=== PATIENT | female | born 1965 | race Hispanic/Latino ===

== ENCOUNTER 2018-08-25 19:31 | Emergency (ER) | payer OTHER, MEDICARE ==
[~2018-08-25 19:31] MED LIST: ALBU0.63 IH; ARIP15TA2 PO; ASPI-555 PO; ATOR40TA69 PO; CALC1TAB3 PO; CAND16TA12 PO; CIPR-278 PO; GEMF600T4 PO; GLIM1TAB2 PO; INSLAN SQ; ISOS30TA6 PO; LEVO25TA9 PO; LORA1TAB3 PO; METF-444 PO; METO-409 PO; OSEL75 GT; PRED20TA3 PO; RANI150T7 PO; SITA100T12 PO; TYL3B PO; VENL75CA97 PO
[2018-08-25 20:12] LABS: BASOPHILS % (AUTO) 0.6 % (0.0-5.0); EOSINOPHILS % (AUTO) 1.7 % (0.0-8.0); LYMPHOCYTES % (AUTO) 43.6 % (21.0-51.0); MEAN CORPUSCULAR HEMOGLOBIN 32.4 pg (27.0-33.0); MEAN CORPUSCULAR HGB CONC 34.2 g/dL (32.0-36.0); MEAN CORPUSCULAR VOLUME 94.7 fL (79-99); NEUTROPHILS % (AUTO) 48.1 % (40.0-77.0); PLATELET COUNT (AUTO) 229 K/uL (130-400); RED BLOOD CELL COUNT(AUTO) 4.22 MIL/uL (4.00-5.50); RED CELL DISTRIBUTION WIDTH 13.5 % (11.0-15.5); WHITE BLOOD COUNT (AUTO) 8.6 K/uL (4.8-10.8)
[2018-08-25 20:14] LABS: APPEARANCE,URINE Clear (CLEAR); BILIRUBIN,URINE Negative (NEGATIVE); COLOR,URINE Yellow (YELLOW); GLUCOSE, URINE (UA) Negative (NEGATIVE); KETONES,URINE Negative (NEGATIVE); LEUKOCYTE ESTERASE ,URINE Small (NEGATIVE); NITRATE,URINE Negative (NEGATIVE); OCCULT BLOOD,URINE Negative (NEGATIVE); PROTEIN,URINE Negative (NEGATIVE); UROBILINOGEN,URINE 0.2 mg/dL (0.2-1.0)
[2018-08-25 20:22] LABS: POTASSIUM 4.2 mmol/L (3.5-5.1)
[2018-08-25 20:23] LABS: AMPHET/METH SCREEN,URINE NEGATIVE (NEGATIVE); BARBITURATE SCREEN, URINE NEGATIVE (NEGATIVE); BENZODIAZEPINES SCREEN,URINE NEGATIVE (NEGATIVE); CANNABINOID SCREEN,URINE NEGATIVE (NEGATIVE); COCAINE SCREEN,URINE NEGATIVE (NEGATIVE); OPIATE SCREEN,URINE NEGATIVE (NEGATIVE); PHENCYCLIDINE SCREEN,URINE NEGATIVE (NEGATIVE)
[2018-08-25 20:27] LABS: ALBUMIN 3.7 g/dL (3.5-5.0); BILIRUBIN,TOTAL 0.1 mg/dL (0.2-1.0); TOTAL PROTEIN, SERUM 7.3 g/dL (6.0-8.3)
[2018-08-25 20:48] LABS: BACTERIA,URINE Few /HPF (None Seen); MUCUS,URINE None Seen LPF (None Seen)
[2018-08-25 20:49] LABS: RBC,URINE 0-1 /HPF (0-1)
[2018-08-25] MEDS ORDERED: ONDANSETRON HCL 4 MG/2 ML VIAL ONE (21:45)
[2018-08-25] MEDS ORDERED: KETOROLAC TROMETHAMINE 30MG/ML ONE (21:45)
== END 2018-08-25 22:17 | disposition home or self-care (01) ==
LOC: EDH 19:31
DX: R51 Headache (principal); E11.65 Type 2 diabetes mellitus with hyperglycemia; J45.909 Unspecified asthma, uncomplicated; E78.5 Hyperlipidemia, unspecified; F32.9 Major depressive disorder, single episode, unspecified; F41.9 Anxiety disorder, unspecified; Z88.0 Allergy status to penicillin
CPT/HCPCS: 36415; 70450; 71045; 80053; 80305; 81001; 82150; 82550; 83690; 84484; 85025; 87804 ×2; 93005; 96374; 96375; 99285; J1885; J2405

== ENCOUNTER 2018-11-30 17:19 | Emergency (ER) | payer OTHER, MEDICARE ==
[~2018-11-30 17:19] MED LIST changes: -GEMF600T4 PO; +GEMF600T5 PO
[2018-11-30] MEDS ORDERED: ASPIRIN 325 MG TABLET ONE (17:42)
[2018-11-30] MEDS ORDERED: LORAZEPAM 2 MG/ML 1 ML VIAL ONE (17:43)
[2018-11-30 18:14] LABS: BASOPHILS % (AUTO) 0.8 % (0.0-5.0); EOSINOPHILS % (AUTO) 1.6 % (0.0-8.0); HEMATOCRIT 39.8 % (36-48); LYMPHOCYTES % (AUTO) 41.4 % (21.0-51.0); MEAN CORPUSCULAR HEMOGLOBIN 32.3 pg (27.0-33.0); MEAN CORPUSCULAR HGB CONC 34.2 g/dL (32.0-36.0); MEAN CORPUSCULAR VOLUME 94.3 fL (79-99); MONOCYTES % (AUTO) 8.1 % (3.0-13.0); NEUTROPHILS % (AUTO) 48.1 % (40.0-77.0); PLATELET COUNT (AUTO) 240 K/uL (130-400); RED BLOOD CELL COUNT(AUTO) 4.22 MIL/uL (4.00-5.50); RED CELL DISTRIBUTION WIDTH 13.7 % (11.0-15.5); WHITE BLOOD COUNT (AUTO) 6.8 K/uL (4.8-10.8)
[2018-11-30 18:36] LABS: BILIRUBIN,DIRECT 0.1 mg/dL (0.0-0.3); BILIRUBIN,TOTAL 0.2 mg/dL (0.2-1.0); CREATININE 0.9 mg/dL (0.5-1.5); POTASSIUM 4.3 mmol/L (3.5-5.1); TOTAL PROTEIN, SERUM 7.8 g/dL (6.0-8.3)
[2018-11-30 19:09] LABS: B-TYPE NATRIURETIC PEPTIDE 24 pg/mL (0-100)
[2018-11-30] MEDS ORDERED: SODIUM CHLORIDE 0.9% 1000ML 1,000 ML IV ONE (19:13)
[2018-11-30] MEDS ORDERED: INSULIN HUMULIN R 100 UNIT/ML 3ML ONE (20:05)
== END 2018-11-30 20:18 | disposition home or self-care (01) ==
LOC: EDH 17:19
DX: R07.89 Other chest pain (principal); J45.909 Unspecified asthma, uncomplicated; F32.9 Major depressive disorder, single episode, unspecified; E11.9 Type 2 diabetes mellitus without complications; E78.5 Hyperlipidemia, unspecified; F41.9 Anxiety disorder, unspecified; Z88.0 Allergy status to penicillin; Z79.4 Long term (current) use of insulin
CPT/HCPCS: 36415; 71045; 80048; 80076; 82550; 83880; 84484 ×2; 85025; 93005 ×2; 96374; 96375; 99284; J1815; J2060; J7030

== ENCOUNTER → 2018-12-25 | Outpatient (CLI) | payer OTHER, MEDICARE | END | disposition home or self-care (01) | LOC: SHCH 08:19 | PROVIDERS: ATTEND Internal Medicine Cardiovascular Disease | DX: R07.9 Chest pain, unspecified (principal); R00.2 Palpitations; R06.00 Dyspnea, unspecified | CPT/HCPCS: 71046; 93306 ==

== ENCOUNTER 2019-01-19 02:07 | Emergency (ER) | payer OTHER, MEDICARE ==
[2019-01-19 02:48] LABS: BASOPHILS % (AUTO) 0.6 % (0.0-5.0); EOSINOPHILS % (AUTO) 1.1 % (0.0-8.0); HEMATOCRIT 38.6 % (36-48); LYMPHOCYTES % (AUTO) 32.8 % (21.0-51.0); MEAN CORPUSCULAR HEMOGLOBIN 31.4 pg (27.0-33.0); MEAN CORPUSCULAR HGB CONC 34.8 g/dL (32.0-36.0); MEAN CORPUSCULAR VOLUME 90.3 fL (79-99); MONOCYTES % (AUTO) 6.4 % (3.0-13.0); NEUTROPHILS % (AUTO) 59.1 % (40.0-77.0); NUCLEATED RED BLOOD CELLS 0.2 % (0.0-0.19); PLATELET COUNT (AUTO) 244 K/uL (130-400); RED BLOOD CELL COUNT(AUTO) 4.27 MIL/uL (4.00-5.50); RED CELL DISTRIBUTION WIDTH 13.8 % (11.0-15.5); WHITE BLOOD COUNT (AUTO) 7.4 K/uL (4.8-10.8)
[2019-01-19] MEDS ORDERED: FAMOTIDINE/PF 20 MG/2 ML VIAL IV ONE (02:50)
[2019-01-19] MEDS ORDERED: ONDANSETRON HCL 4 MG/2 ML VIAL ONE (02:50)
[2019-01-19 02:55] LABS: APPEARANCE,URINE Clear (CLEAR); BILIRUBIN,URINE Negative (NEGATIVE); COLOR,URINE Yellow (YELLOW); GLUCOSE, URINE (UA) >=1000 mg/dL (NEGATIVE); KETONES,URINE 40 mg/dL (NEGATIVE); LEUKOCYTE ESTERASE ,URINE Negative (NEGATIVE); NITRATE,URINE Negative (NEGATIVE); OCCULT BLOOD,URINE Negative (NEGATIVE); PROTEIN,URINE 300 mg/dL (NEGATIVE)
[2019-01-19] MEDS ORDERED: SODIUM CHLORIDE 0.9% 1000ML 1,000 ML IV ONE (02:57)
[2019-01-19 02:58] LABS: INR 0.95 (0.85-1.15); PARTIAL THROMBOPLASTIN TIME 25.1 SEC (26.3-35.5)
[2019-01-19 02:59] LABS: CREATININE 0.9 mg/dL (0.5-1.5); POTASSIUM 3.7 mmol/L (3.5-5.1)
[2019-01-19 03:03] LABS: ALBUMIN 3.8 g/dL (3.5-5.0); BILIRUBIN,TOTAL 0.2 mg/dL (0.2-1.0); TOTAL PROTEIN, SERUM 7.8 g/dL (6.0-8.3)
[2019-01-19 03:11] LABS: BACTERIA,URINE None Seen /HPF (None Seen); MUCUS,URINE Moderate LPF (None Seen); RBC,URINE 0-1 /HPF (0-1); SQUAMOUS EPITHELIAL CELL,UR Moderate /HPF (0-2); WBC,URINE 0-1 /HPF (0-1)
[2019-01-19] MEDS ORDERED: LIDOCAINE HCL 2% VISCOUS 15 ML UDCUP ONE (05:05)
[2019-01-19] MEDS ORDERED: MAG HYDROX/AL HYDROX/SIMETH ES 30 ML SUSP UDCUP ONE (05:05)
[2019-01-19] MEDS ORDERED: PANTOPRAZOLE 40 MG/VIAL IVP ONE (05:15)
== END 2019-01-19 05:25 | disposition home or self-care (01) ==
LOC: EDH 02:07
DX: E86.9 Volume depletion, unspecified (principal); E11.65 Type 2 diabetes mellitus with hyperglycemia; R11.2 Nausea with vomiting, unspecified; E78.5 Hyperlipidemia, unspecified; J45.909 Unspecified asthma, uncomplicated; F41.9 Anxiety disorder, unspecified; Z88.0 Allergy status to penicillin
CPT/HCPCS: 36415; 80053; 81001; 82550; 83605 ×2; 83690; 84484; 85025; 85610; 85730; 93005; 96361; 96374; 96375; 99284; C9113; J2405; J3490; J7030

== ENCOUNTER 2021-07-06 22:47 | Emergency (ER) | payer OTHER, MEDICARE ==
[~2021-07-06] VITALS: Ht 152.4 cm; Wt 69.4 kg
[~2021-07-06 22:47] MED LIST changes: -ASPI-555 PO; +ASPI-556 PO; -GEMF600T5 PO; +GEMF600T89 PO; +GLIM1TAB18 PO; -GLIM1TAB2 PO; -ISOS30TA6 PO; +ISOS30TA92 PO
[2021-07-06 23:17] VITALS: BP 149/76
[2021-07-07 00:30] LABS: APPEARANCE,URINE Clear (CLEAR); BILIRUBIN,URINE Negative (NEGATIVE); COLOR,URINE Yellow (YELLOW); GLUCOSE, URINE (UA) >=1000 mg/dL (NEGATIVE); KETONES,URINE Trace mg/dL (NEGATIVE); LEUKOCYTE ESTERASE ,URINE Negative (NEGATIVE); NITRATE,URINE Negative (NEGATIVE); OCCULT BLOOD,URINE Negative (NEGATIVE); PROTEIN,URINE Negative (NEGATIVE); UROBILINOGEN,URINE 0.2 mg/dL (0.2-1.0)
[2021-07-07 00:46] LABS: BACTERIA,URINE None Seen /HPF (None Seen); RBC,URINE 0-1 /HPF (0-1); SQUAMOUS EPITHELIAL CELL,UR Few /HPF (0-2); WBC,URINE 0-1 /HPF (0-1)
[2021-07-07 00:46] LABS: BASOPHILS % (AUTO) 0.8 % (0.0-5.0); EOSINOPHILS % (AUTO) 2.3 % (0.0-8.0); HEMATOCRIT 39.5 % (36-48); MEAN CORPUSCULAR HEMOGLOBIN 31.2 pg (27.0-33.0); MEAN CORPUSCULAR HGB CONC 36.5 g/dL (32.0-36.0); MEAN CORPUSCULAR VOLUME 85.5 fL (79-99); MONOCYTES % (AUTO) 7.5 % (3.0-13.0); NEUTROPHILS % (AUTO) 42.2 % (40.0-77.0); PLATELET COUNT (AUTO) 252 K/uL (130-400); RED BLOOD CELL COUNT(AUTO) 4.62 MIL/uL (4.00-5.50); RED CELL DISTRIBUTION WIDTH 15.1 % (11.0-15.5); WHITE BLOOD COUNT (AUTO) 9.9 K/uL (4.8-10.8)
[2021-07-07 00:51] LABS: CREATININE 1.2 mg/dL (0.5-1.5); POTASSIUM 4.4 mmol/L (3.5-5.1)
[2021-07-07 00:55] VITALS: BP 150/71
[2021-07-07 00:56] LABS: ALBUMIN 3.7 g/dL (3.5-5.0); BILIRUBIN,TOTAL 0.3 mg/dL (0.2-1.0); TOTAL PROTEIN, SERUM 7.9 g/dL (6.0-8.3)
[2021-07-07] MEDS ORDERED: NITROGLYCERIN 1GM OINT 1 INCH/1GM TD ONE (02:30)
[2021-07-07] MEDS ORDERED: MECLIZINE HCL 25 MG TABLET PO ONE (02:30)
[2021-07-07 02:40] VITALS: BP 136/82
[2021-07-07 03:49] VITALS: BP 152/79
[2021-07-07] MEDS ORDERED: IPRATROPIUM/ALBUTEROL SULFATE 3 ML SOLUTION IH ONE ×2 (03:57→04:00)
[2021-07-07 04:55] VITALS: BP 138/81
[2021-07-07] MEDS ORDERED: SOLU-MEDROL 40MG VIAL ONE (05:13)
[2021-07-07] MEDS ORDERED: MECL-160 PO (05:19)
[2021-07-07] MEDS ORDERED: PRED20TA3 PO (05:19)
[2021-07-07] MEDS ORDERED: ALBU1.252 IH (05:19)
[2021-07-07] MEDS ORDERED: SOLU-MEDROL 125MG VIAL IVP ONE (05:30)
== END 2021-07-07 05:35 | disposition home or self-care (01) ==
LOC: EDH 22:47
DX: J45.901 Unspecified asthma with (acute) exacerbation (principal); H81.10 Benign paroxysmal vertigo, unspecified ear; E11.9 Type 2 diabetes mellitus without complications; E78.00 Pure hypercholesterolemia, unspecified; F32.9 Major depressive disorder, single episode, unspecified; I10 Essential (primary) hypertension; I25.10 Atherosclerotic heart disease of native coronary artery without angina pectoris; Z79.4 Long term (current) use of insulin; Z79.52 Long term (current) use of systemic steroids; Z79.82 Long term (current) use of aspirin; Z79.899 Other long term (current) drug therapy; Z88.0 Allergy status to penicillin; Z88.8 Allergy status to other drugs, medicaments and biological substances
CPT/HCPCS: 36415; 71045; 80053; 81001; 82550 ×2; 83690; 83880; 84484 ×2; 85025; 93005 ×2; 94640; 96374; 99285; J2920

== ENCOUNTER 2022-03-30 11:00 | Observation (INO) | payer OTHER, MEDICARE ==
[~2022-03-30] VITALS: Ht 147.3 cm; Wt 74.4 kg
[~2022-03-30 11:00] MED LIST changes: +ALBU1.252 IH; -CAND16TA12 PO; +CAND16TA28 PO; +MECL-160 PO
[2022-03-30 12:28] LABS: BASOPHILS % (AUTO) 0.6 % (0.0-5.0); EOSINOPHILS % (AUTO) 1.8 % (0.0-8.0); HEMATOCRIT 41.4 % (36-48); LYMPHOCYTES % (AUTO) 44.6 % (21.0-51.0); MEAN CORPUSCULAR HEMOGLOBIN 28.8 pg (27.0-33.0); MEAN CORPUSCULAR HGB CONC 32.9 g/dL (32.0-36.0); MEAN CORPUSCULAR VOLUME 87.7 fL (79-99); MONOCYTES % (AUTO) 6.2 % (3.0-13.0); NEUTROPHILS % (AUTO) 46.6 % (40.0-77.0); PLATELET COUNT (AUTO) 282 K/uL (130-400); RED BLOOD CELL COUNT(AUTO) 4.72 MIL/uL (4.00-5.50); RED CELL DISTRIBUTION WIDTH 14.7 % (11.0-15.5); WHITE BLOOD COUNT (AUTO) 8.2 K/uL (4.8-10.8)
[2022-03-30 12:43] LABS: CREATININE 0.9 mg/dL (0.5-1.5); POTASSIUM 4.6 mmol/L (3.5-5.1)
[2022-03-30 12:50] LABS: CREATINE KINASE, TOTAL 69 U/L (21-232); MYOGLOBIN 31 ng/mL (10-92)
[2022-03-30 12:51] LABS: ALBUMIN 3.9 g/dL (3.5-5.0); BILIRUBIN,DIRECT 0.1 mg/dL (0.0-0.3); BILIRUBIN,TOTAL 0.3 mg/dL (0.2-1.0); TOTAL PROTEIN, SERUM 7.6 g/dL (6.0-8.3)
[2022-03-30] MEDS ORDERED: ENOXAPARIN SODIUM 80 MG/0.8 ML SQ ONE (17:00)
[2022-03-30] MEDS ORDERED: ARIP5TAB56 PO (17:23)
[2022-03-30] MEDS ORDERED: EMPA1TAB19 PO (17:23)
[2022-03-30] MEDS ORDERED: HYDR-3830 PO (17:23)
[2022-03-30] MEDS ORDERED: CLOP75TA32 PO (17:23)
[2022-03-30] MEDS ORDERED: ICOS1CAP PO (17:23)
[2022-03-30] MEDS ORDERED: LEVO88CA4 PO (17:23)
[2022-03-30] MEDS ORDERED: BACL10TA PO (17:23)
[2022-03-30] MEDS ORDERED: EZET10TA48 PO (17:23)
[2022-03-30] MEDS ORDERED: RAME8TAB24 PO (17:23)
[2022-03-30] MEDS ORDERED: VALB40CA2 PO (17:23)
[2022-03-30] MEDS ORDERED: VENL-63 PO (17:23)
[2022-03-30] MEDS ORDERED: PANT40TA54 PO (17:23)
[2022-03-30] MEDS ORDERED: LISI10TA24 PO (17:23)
[2022-03-30] MEDS ORDERED: BUSP15TA3 PO (17:23)
[2022-03-30] MEDS ORDERED: GABA-529 PO (17:23)
[2022-03-30] MEDS: ENOXAPARIN SODIUM 100 MG/1 ML SQ SCH (20:20)
[2022-03-31 01:05] VITALS: BP 158/74
[2022-03-31] MEDS ORDERED: INSU100V37 SQ (01:35)
[2022-03-31] MEDS ORDERED: DULA3PEN SQ (01:35)
[2022-03-31] MEDS ORDERED: DEXTROSE 50%-WATER 50 ML DISP.SYRIN IV PRN (03:00)
[2022-03-31] MEDS ORDERED: GLUCAGON 1MG KIT 1 MG ML IM PRN (03:00)
[2022-03-31 04:00] VITALS: BP 117/55
[2022-03-31] MEDS: INSULIN LISPRO 100 UNIT/ML 3ML SQ SCH ×4 (06:08→20:54)
[2022-03-31 06:28] LABS: HEMATOCRIT 38.9 % (36-48); MEAN CORPUSCULAR HEMOGLOBIN 29.2 pg (27.0-33.0); MEAN CORPUSCULAR HGB CONC 33.2 g/dL (32.0-36.0); RED BLOOD CELL COUNT(AUTO) 4.42 MIL/uL (4.00-5.50); RED CELL DISTRIBUTION WIDTH 14.9 % (11.0-15.5); WHITE BLOOD COUNT (AUTO) 8.1 K/uL (4.8-10.8)
[2022-03-31 06:43] LABS: CREATININE 0.7 mg/dL (0.5-1.5); POTASSIUM 3.9 mmol/L (3.5-5.1)
[2022-03-31] MEDS ORDERED: INSULIN HUMULIN R 100 UNIT/ML 3ML SQ SCH (07:30)
[2022-03-31 08:00] VITALS: BP 121/60
[2022-03-31] MEDS: LISINOPRIL 10 MG TABLET PO SCH (08:46)
[2022-03-31] MEDS: RANOLAZINE 500 MG TAB.SR.12H PO SCH ×2 (08:46→20:46)
[2022-03-31] MEDS: ASPIRIN 81MG CHEW TAB PO SCH (08:46)
[2022-03-31] MEDS: ENOXAPARIN SODIUM 100 MG/1 ML SQ SCH ×2 (08:47→20:47)
[2022-03-31] MEDS: CLOPIDOGREL 75MG TAB PO SCH (08:48)
[2022-03-31] MEDS: METOPROLOL SUCCINATE 50 MG TAB.SR.24H PO SCH (08:49)
[2022-03-31 12:00] VITALS: BP 129/63
[2022-03-31] MEDS ORDERED: REGADENOSON 0.4 MG/5 ML PF SYG IVP SCH (12:00)
[2022-03-31 16:00] VITALS: BP 130/68
[2022-03-31 20:00] VITALS: BP 127/63
[2022-04-01] VITALS: BP 126/51
[2022-04-01 04:00] VITALS: BP 134/62
[2022-04-01] MEDS: INSULIN LISPRO 100 UNIT/ML 3ML SQ SCH ×2 (06:12→11:30)
[2022-04-01] MEDS ORDERED: DULAGLUTIDE 3 MG SQ SCH (07:30)
[2022-04-01 08:00] VITALS: BP 121/58
[2022-04-01] MEDS: METOPROLOL SUCCINATE 50 MG TAB.SR.24H PO SCH (08:09)
[2022-04-01] MEDS: ASPIRIN 81MG CHEW TAB PO SCH (08:09)
[2022-04-01] MEDS: RANOLAZINE 500 MG TAB.SR.12H PO SCH (08:09)
[2022-04-01] MEDS: CLOPIDOGREL 75MG TAB PO SCH (08:10)
[2022-04-01] MEDS: LISINOPRIL 10 MG TABLET PO SCH (08:10)
[2022-04-01] MEDS: ENOXAPARIN SODIUM 100 MG/1 ML SQ SCH (08:11)
[2022-04-01] MEDS ORDERED: LEVOTHYROXINE 88 MCG TABLET PO SCH (08:14)
[2022-04-01] MEDS: FISH OIL 1000 MG/CAP PO SCH ×2 (08:16→13:09)
[2022-04-01] MEDS ORDERED: PANTOPRAZOLE 40 MG TAB DR PO SCH (09:00)
[2022-04-01] MEDS ORDERED: VALBENAZINE TOSYLATE 40 MG PO SCH (09:00)
[2022-04-01] MEDS ORDERED: EMPAGLIFLOZIN PO SCH (09:00)
[2022-04-01] MEDS ORDERED: CLOPIDOGREL 75MG TAB PO SCH (09:00)
[2022-04-01] MEDS ORDERED: EZETIMIBE 10 MG TAB PO SCH (09:00)
[2022-04-01] MEDS ORDERED: HYDROXYZINE 10 MG TABLET PO SCH (09:00)
[2022-04-01] MEDS ORDERED: METFORMIN HCL PO SCH (09:00)
[2022-04-01] MEDS ORDERED: INSULIN DEGLUDEC 70 UNIT SQ SCH (09:00)
[2022-04-01 12:00] VITALS: BP 120/64
[2022-04-01] MEDS ORDERED: GABAPENTIN 100 MG CAPSULE PO SCH (21:00)
[2022-04-01] MEDS ORDERED: BUSPIRONE HCL 5 MG TABLET PO SCH (21:00)
[2022-04-01] MEDS ORDERED: VENLAFAXINE HCL XR 37.5 MG CAP PO SCH (21:00)
[2022-04-01] MEDS ORDERED: BACLOFEN 10 MG TABLET PO SCH (21:00)
[2022-04-01] MEDS ORDERED: ARIPIPRAZOLE 5 MG TABLET PO SCH (21:00)
[2022-04-01] MEDS ORDERED: ATORVASTATIN 40 MG TABLET PO SCH (21:00)
[2022-04-01] MEDS ORDERED: RAMELTEON 8 MG PO SCH (21:00)
== END 2022-04-01 15:00 | disposition home or self-care (01) ==
LOC: EDH 11:00 → EDHIP 11:01 → 3BH 03-31 01:09
PROVIDERS: ADMIT Internal Medicine; ATTEND Internal Medicine
DX: I25.110 Atherosclerotic heart disease of native coronary artery with unstable angina pectoris (principal); I10 Essential (primary) hypertension; E11.9 Type 2 diabetes mellitus without complications; E78.5 Hyperlipidemia, unspecified; J44.9 Chronic obstructive pulmonary disease, unspecified; E03.9 Hypothyroidism, unspecified; F41.0 Panic disorder [episodic paroxysmal anxiety]; F41.8 Other specified anxiety disorders; E66.01 Morbid (severe) obesity due to excess calories; K76.0 Fatty (change of) liver, not elsewhere classified; Z88.0 Allergy status to penicillin; Z79.899 Other long term (current) drug therapy; Z79.02 Long term (current) use of antithrombotics/antiplatelets; Z79.4 Long term (current) use of insulin; Z79.82 Long term (current) use of aspirin
CPT/HCPCS: 36415 ×2; 71045; 78452; 80048 ×2; 80076; 82550; 82948 ×6; 83874; 84484 ×2; 85025; 85027; 93005; 93017; 93306; 93356; 96372 ×3; A9500 ×2; G0378 ×48; G0379; J1650 ×4; J2785; 96374

== ENCOUNTER → 2022-10-10 | Outpatient (CLI) | payer OTHER ==
[~2022-10-10] MED LIST changes: -ALBU0.63 IH; -ALBU1.252 IH; -ARIP15TA2 PO; +ARIP5TAB56 PO; -ASPI-556 PO; +BACL10TA PO; +BUSP15TA3 PO; -CALC1TAB3 PO; -CAND16TA28 PO; -CIPR-278 PO; +CLOP75TA32 PO; +DULA3PEN SQ; +EMPA1TAB19 PO; +EZET10TA48 PO; +GABA-529 PO; -GEMF600T89 PO; -GLIM1TAB18 PO; +HYDR-3830 PO; +ICOS1CAP PO; -INSLAN SQ; +INSU100V37 SQ; -ISOS30TA92 PO; -LEVO25TA9 PO; +LEVO88CA4 PO; +LISI10TA24 PO; -LORA1TAB3 PO; -MECL-160 PO; -METF-444 PO; -OSEL75 GT; +PANT40TA54 PO; -PRED20TA3 PO; +RAME8TAB24 PO; -RANI150T7 PO; -SITA100T12 PO; -TYL3B PO; +VALB40CA2 PO; +VENL-63 PO; -VENL75CA97 PO
== END | disposition home or self-care (01) ==
LOC: DTH 09:02
PROVIDERS: ATTEND Surgery
DX: Z71.3 Dietary counseling and surveillance (principal); E11.9 Type 2 diabetes mellitus without complications; E78.00 Pure hypercholesterolemia, unspecified; I10 Essential (primary) hypertension; K76.0 Fatty (change of) liver, not elsewhere classified; K21.9 Gastro-esophageal reflux disease without esophagitis; E66.09 Other obesity due to excess calories; Z68.37 Body mass index [BMI] 37.0-37.9, adult
CPT/HCPCS: 97803

== ENCOUNTER → 2022-12-04 | Outpatient (CLI) | payer OTHER | END | disposition home or self-care (01) | LOC: DTH 09:11 | PROVIDERS: ATTEND Surgery | DX: Z71.3 Dietary counseling and surveillance (principal); E66.09 Other obesity due to excess calories; E11.9 Type 2 diabetes mellitus without complications; E78.5 Hyperlipidemia, unspecified; I10 Essential (primary) hypertension; E78.00 Pure hypercholesterolemia, unspecified; K76.0 Fatty (change of) liver, not elsewhere classified; K21.9 Gastro-esophageal reflux disease without esophagitis; Z68.37 Body mass index [BMI] 37.0-37.9, adult | CPT/HCPCS: 97803 ==

== ENCOUNTER 2023-04-19 23:40 | Emergency (ER) | payer OTHER, MEDICARE ==
[~2023-04-19] VITALS: Ht 152.4 cm; Wt 75.7 kg
[2023-04-20 00:24] LABS: CREATININE 0.7 mg/dL (0.5-1.5); POTASSIUM 4.1 mmol/L (3.5-5.1)
[2023-04-20 00:28] LABS: INR 0.93 (0.85-1.15); MAGNESIUM 1.8 mg/dL (1.80-2.40); PROTHROMBIN TIME 10.1 SEC (9.6-11.6); TOTAL PROTEIN, SERUM 7.8 g/dL (6.0-8.3)
[2023-04-20 00:29] LABS: PARTIAL THROMBOPLASTIN TIME 25.4 SEC (26.3-35.5)
[2023-04-20] MEDS ORDERED: NITROGLYCERIN 0.4 MG SL TAB SL PRN (00:30)
[2023-04-20] MEDS ORDERED: ASPIRIN 325MG TAB PO ONE (00:30)
[2023-04-20 00:41] LABS: BASOPHILS % (AUTO) 0.6 % (0.0-5.0); EOSINOPHILS % (AUTO) 2.2 % (0.0-8.0); HEMATOCRIT 39.9 % (36-48); LYMPHOCYTES % (AUTO) 45.6 % (21.0-51.0); MEAN CORPUSCULAR HEMOGLOBIN 32.1 pg (27.0-33.0); MEAN CORPUSCULAR HGB CONC 34.1 g/dL (32.0-36.0); MEAN CORPUSCULAR VOLUME 94.1 fL (79-99); MONOCYTES % (AUTO) 6.9 % (3.0-13.0); NEUTROPHILS % (AUTO) 44.4 % (40.0-77.0); PLATELET COUNT (AUTO) 199 K/uL (130-400); RED BLOOD CELL COUNT(AUTO) 4.24 MIL/uL (4.00-5.50); RED CELL DISTRIBUTION WIDTH 13.2 % (11.0-15.5); WHITE BLOOD COUNT (AUTO) 7.1 K/uL (4.8-10.8)
[2023-04-20] MEDS ORDERED: ASPI-1005 PO (03:34)
[2023-04-20] MEDS ORDERED: NITR0.4T50 SL (03:34)
[2023-04-20 03:43] VITALS: BP 122/52
== END 2023-04-20 04:00 | disposition home or self-care (01) ==
LOC: EDH 23:40
DX: I20.8 Other forms of angina pectoris (principal); I10 Essential (primary) hypertension; E78.00 Pure hypercholesterolemia, unspecified; E03.9 Hypothyroidism, unspecified; Z79.02 Long term (current) use of antithrombotics/antiplatelets; Z79.84 Long term (current) use of oral hypoglycemic drugs; Z79.899 Other long term (current) drug therapy; Z88.0 Allergy status to penicillin; Z91.040 Latex allergy status
CPT/HCPCS: 36415; 70450; 71045; 80053; 83735; 84484; 85025; 85610; 85730; 93005

== ENCOUNTER → 2023-05-03 | Outpatient (CLI) | payer OTHER, MEDICARE ==
[~2023-05-03] MED LIST changes: +ASPI-1005 PO; +NITR0.4T50 SL; +REGADENOSON 0.4 MG/5 ML PF SYG IVP SCH
== END | disposition home or self-care (01) ==
LOC: RAH 08:43
PROVIDERS: ATTEND Internal Medicine
DX: R07.9 Chest pain, unspecified (principal)
CPT/HCPCS: 78452; 96374; 93017; J2785; A9500 ×2

== ENCOUNTER 2025-03-25 06:52 | Day surgery (SDC) | payer OTHER, MEDICAID ==
[~2025-03-25] VITALS: Ht 147.3 cm; Wt 46.7 kg
[2025-03-25] VITALS (11 sets, daily range): BP systolic 101–142; BP diastolic 48–68; PULSE 54–61; RESP 14–18; TEMP 97.1–97.5
[~2025-03-25 06:52] MED LIST changes: +AMAN-23 PO; -ARIP5TAB56 PO; -ASPI-1005 PO; -BACL10TA PO; -BUSP15TA3 PO; -DULA3PEN SQ; -EMPA1TAB19 PO; -HYDR-3830 PO; -ICOS1CAP PO; +ISOS30TA92 PO; +LEVO5TAB13 PO; -LEVO88CA4 PO; +LEVO88CA5 PO; -LISI10TA24 PO; +MAGN400C PO; +MIRT7.5T11 PO; -NITR0.4T50 SL; +OMEG100014 PO; -PANT40TA54 PO; +PANT40TA55 PO; -RAME8TAB24 PO; -REGADENOSON 0.4 MG/5 ML PF SYG IVP SCH; +TIRZ2.5P SQ; -VALB40CA2 PO; +VALB80CA PO; -VENL-63 PO; +VILA40TA PO; +VITA1CAP85 PO
[2025-03-25] MEDS ORDERED: FAMO40TA7 PO (08:43)
[2025-03-25] MEDS: 0.9%NACL 1000ML 1,000 ML IV ONE (08:58)
[2025-03-25] MEDS ORDERED: proPOFol 10 MG/ML 20ML VIAL IV ONE (10:41)
[2025-03-25] MEDS ORDERED: SUCCINYLCHOLINE CHLORIDE 20 MG/ML 10 ML VIAL ONE (10:41)
[2025-03-25] MEDS ORDERED: phenylEPHRINE HCL 10 MG/ML 1ML VIAL IV ONE (10:42)
[2025-03-25] MEDS ORDERED: LIDOCAINE PF 100MG/5ML (2%) SYRINGE 5ML ONE (10:42)
--- NOTE | 2025-03-25 12:01 | NUR ---
Full and complete discharge instructions given to Patient and Family both verbally and in writing. Explained GI procedure precautions and follow up. All questions answered. PIV removed with catheter tip intact. Home with Family W/C to POV.
== END 2025-03-25 11:55 | disposition home or self-care (01) ==
LOC: ENDO 06:52 → DAH 06:52 → ENDO 11:55
PROVIDERS: ATTEND Internal Medicine Gastroenterology
DX: R10.13 Epigastric pain (principal); K29.50 Unspecified chronic gastritis without bleeding; K22.89 Other specified disease of esophagus; K57.90 Diverticulosis of intestine, part unspecified, without perforation or abscess without bleeding; K21.9 Gastro-esophageal reflux disease without esophagitis; I10 Essential (primary) hypertension; R10.9 Unspecified abdominal pain; E78.5 Hyperlipidemia, unspecified; E03.9 Hypothyroidism, unspecified; K91.1 Postgastric surgery syndromes; K76.0 Fatty (change of) liver, not elsewhere classified; E11.8 Type 2 diabetes mellitus with unspecified complications; F41.9 Anxiety disorder, unspecified; E66.01 Morbid (severe) obesity due to excess calories; Z68.22 Body mass index [BMI] 22.0-22.9, adult; Z98.84 Bariatric surgery status; Z79.899 Other long term (current) drug therapy; Z79.890 Hormone replacement therapy; Z86.73 Personal history of transient ischemic attack (TIA), and cerebral infarction without residual deficits; Z98.41 Cataract extraction status, right eye; Z98.42 Cataract extraction status, left eye; Z98.890 Other specified postprocedural states; Z88.0 Allergy status to penicillin; Z88.8 Allergy status to other drugs, medicaments and biological substances
CPT/HCPCS: 43239; 82948 ×2; J0330; J7030; J2003; J2704; J2371; A4620; A4215 ×2; A4223; A4222; A4221; A4663; A4606; J3490